=== PATIENT | male | born 1955 | race Caucasian/White ===

== ENCOUNTER 2020-07-23 22:14 | Emergency (ER) | payer BC ==
[2020-07-23 22:28] LABS: BASOPHILS % (AUTO) 0.3 % (0.0-5.0); EOSINOPHILS % (AUTO) 0.6 % (0.0-8.0); HEMATOCRIT 45.8 % (42-54); LYMPHOCYTES % (AUTO) 76.1 % (21.0-51.0); MEAN CORPUSCULAR HEMOGLOBIN 25.6 pg (27.0-33.0); MEAN CORPUSCULAR HGB CONC 31.7 g/dL (32.0-36.0); MEAN CORPUSCULAR VOLUME 80.9 fL (79-99); MONOCYTES % (AUTO) 0.6 % (3.0-13.0); NEUTROPHILS % (AUTO) 21.4 % (40.0-77.0); PLATELET COUNT (AUTO) 174 K/uL (130-400); RED BLOOD CELL COUNT(AUTO) 5.66 MIL/uL (4.50-6.20); RED CELL DISTRIBUTION WIDTH 14.7 % (11.0-15.5); WHITE BLOOD COUNT (AUTO) 3.1 K/uL (4.8-10.8)
[2020-07-23 22:39] LABS: CREATININE 1.4 mg/dL (0.5-1.5); POTASSIUM 3.9 mmol/L (3.5-5.1)
[2020-07-23 22:44] LABS: ALBUMIN 3.8 g/dL (3.5-5.0); BILIRUBIN,TOTAL 0.7 mg/dL (0.2-1.0); TOTAL PROTEIN, SERUM 7.9 g/dL (6.0-8.3)
[2020-07-23 22:59] LABS: INR 1.03 (0.85-1.15); PROTHROMBIN TIME 11.2 SEC (9.6-11.6)
[2020-07-23 23:00] LABS: PARTIAL THROMBOPLASTIN TIME 25.2 SEC (26.3-35.5)
== END 2020-07-24 | disposition home or self-care (01) ==
LOC: EDH 22:14
DX: I47.1 Supraventricular tachycardia (principal)
CPT/HCPCS: 36415; 71045; 80053; 82550; 83880; 84484; 85025; 85378; 85610; 85730; 93005

== ENCOUNTER → 2024-05-03 | Outpatient (CLI) | payer BC ==
[2024-05-03 16:22] LABS: BASOPHILS # (AUTO) 0.04 K/uL (0.00-0.20); BASOPHILS % (AUTO) 0.6 % (0.0-5.0); EOSINOPHILS # (AUTO) 0.46 K/uL (0.00-0.70); EOSINOPHILS % (AUTO) 6.4 % (0.0-8.0); HEMATOCRIT 40.6 % (42-54); IMMATURE GRANULOCYTE ABSOLUTE 0.06 K/uL (0-1); LYMPHOCYTES # (AUTO) 2.2 K/uL (1.0-4.8); LYMPHOCYTES % (AUTO) 30.8 % (21.0-51.0); MEAN CORPUSCULAR HEMOGLOBIN 25.9 pg (27.0-33.0); MEAN CORPUSCULAR VOLUME 86.2 fL (79-99); MONOCYTES # (AUTO) 0.6 K/uL (0.1-1.0); MONOCYTES % (AUTO) 7.7 % (3.0-13.0); NEUTROPHILS # (AUTO) 3.9 K/uL (1.8-7.7); NEUTROPHILS % (AUTO) 53.7 % (40.0-77.0); PLATELET COUNT (AUTO) 197 K/uL (130-400); RED BLOOD CELL COUNT(AUTO) 4.71 MIL/uL (4.50-6.20); RED CELL DISTRIBUTION WIDTH 16.5 % (11.0-15.5); WHITE BLOOD COUNT (AUTO) 7.2 K/uL (4.8-10.8)
== END | disposition home or self-care (01) ==
LOC: LAB 13:58
PROVIDERS: ATTEND Internal Medicine Cardiovascular Disease
DX: I48.0 Paroxysmal atrial fibrillation (principal)
CPT/HCPCS: 36415; 85025

== ENCOUNTER 2024-10-06 08:20 | Day surgery (SDC) | payer BC ==
[2024-10-04 13:53] LABS: BASOPHILS # (AUTO) 0.05 K/uL (0.00-0.20); BASOPHILS % (AUTO) 0.7 % (0.0-5.0); EOSINOPHILS # (AUTO) 0.27 K/uL (0.00-0.70); EOSINOPHILS % (AUTO) 3.5 % (0.0-8.0); HEMATOCRIT 44.3 % (42-54); IMMATURE GRANULOCYTE ABSOLUTE 0.04 K/uL (0-1); LYMPHOCYTES # (AUTO) 2.3 K/uL (1.0-4.8); LYMPHOCYTES % (AUTO) 29.9 % (21.0-51.0); MEAN CORPUSCULAR HEMOGLOBIN 25.1 pg (27.0-33.0); MEAN CORPUSCULAR HGB CONC 31.2 g/dL (32.0-36.0); MEAN CORPUSCULAR VOLUME 80.5 fL (79-99); MONOCYTES # (AUTO) 0.8 K/uL (0.1-1.0); MONOCYTES % (AUTO) 9.9 % (3.0-13.0); NEUTROPHILS # (AUTO) 4.2 K/uL (1.8-7.7); NEUTROPHILS % (AUTO) 55.5 % (40.0-77.0); PLATELET COUNT (AUTO) 181 K/uL (130-400); RED CELL DISTRIBUTION WIDTH 17.4 % (11.0-15.5); WHITE BLOOD COUNT (AUTO) 7.7 K/uL (4.8-10.8)
--- NOTE | 2024-10-04 13:59 | EKG ---
[facility] Test Date: 2024-10-04 Test Time: 13:44:29 Pat Name: CHINMAY BERNARDO Department: 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
[2024-10-04 14:04] LABS: POTASSIUM 4.2 mmol/L (3.5-5.1)
[2024-10-04 14:06] LABS: INR 1.08 (0.85-1.15); PROTHROMBIN TIME 11.4 SEC (9.6-11.6)
[2024-10-04 14:08] LABS: PARTIAL THROMBOPLASTIN TIME 32.5 SEC (26.3-35.5)
[2024-10-04 14:36] VITALS: BP 125/82; PULSE 80; RESP 16; TEMP 97.8
[~2024-10-06] VITALS: Ht 195.6 cm; Wt 128.7 kg
[2024-10-06] VITALS (7 sets, daily range): BP systolic 113–143; BP diastolic 68–98; PULSE 65–83; RESP 12–18; TEMP 97.5–97.9
[~2024-10-06 08:20] MED LIST: APIX5TAB PO; METO-391 PO; TAMS-55 PO
[2024-10-06] MEDS ORDERED: HEParin-NS 1,000 UNIT/500 ML 500 ML IV ONE ×2 (12:16→15:08)
[2024-10-06] MEDS ORDERED: LIDOCAINE HCL 400MG/20ML VIAL ONE (12:16)
[2024-10-06] MEDS ORDERED: HEParin 10,000 UNIT/10ML (1,000 UNIT/ML) VIAL ONE (12:16)
[2024-10-06] MEDS ORDERED: FENTanyl CITRate PF 50 MCG/1 ML 2ML VIAL ONE ×4 (12:25→15:27)
[2024-10-06] MEDS ORDERED: MIDAZOLAM HCL 1 MG/ML 2ML VIAL ONE ×6 (12:25→15:07)
[2024-10-06] MEDS ORDERED: rocuRONium bROMide 10MG/1ML 5ML VL ONE (15:08)
[2024-10-06] MEDS ORDERED: proPOFol 10 MG/ML 20ML VIAL IV ONE (15:08)
[2024-10-06] MEDS ORDERED: ondanSETRON 4MG INJ ONE (15:27)
[2024-10-06] MEDS ORDERED: phenylEPHRINE HCL 10 MG/ML 1ML VIAL IV ONE (15:27)
[2024-10-06] MEDS ORDERED: ePHEDrine SULFate 50 MG/ML AMPULE ONE (15:50)
[2024-10-06] MEDS ORDERED: GLYCOPYRROLATE 0.2 MG/ML 5 ML VIAL ONE (16:24)
[2024-10-06] MEDS ORDERED: NEOSTIGMINE METHYLSULFATE 1MG/ML IV ONE (16:24)
--- NOTE | 2024-10-06 19:05 | NUR ---
PATIENT DISCHARGED FROM FACILITY VIA WHEELCHAIR BY NURSE AND ASSISTED INTO PRIVATE VEHICLE DRIVEN BY SPOUSE.
--- NOTE | 2024-10-07 06:53 | EKG ---
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
== END 2024-10-06 19:15 | disposition home or self-care (01) ==
LOC: DAH 08:20
PROVIDERS: ATTEND Internal Medicine Cardiovascular Disease
DX: I48.3 Typical atrial flutter (principal); Z79.01 Long term (current) use of anticoagulants; Z79.899 Other long term (current) drug therapy; Z98.890 Other specified postprocedural states
CPT/HCPCS: 80048; 85025; 85610; 85730; 36415; 93005 ×2; 93653; A4223 ×3; C1894 ×2; C1732 ×3; C1893; A4649 ×2; C1760 ×2; J3010 ×4; J3490 ×4; J1644 ×3; J2250 ×5; J2704; J2405; J2710; J2371; A4215; A6251; A4222; A4221; A4663; A4216; A6258; A4606; 99156; 99157